=== PATIENT | female | born 1960 | race Caucasian/White ===

== ENCOUNTER → 2020-04-17 | Outpatient (CLI) | payer BC, OTHER ==
--- NOTE | 2020-04-21 18:11 | MAM ---
EXAM DESCRIPTION: 3D Screening BILATERAL : Digital Mammography. CLINICAL HISTORY: 60 years Female SCREENING . No complaints. No personal history of breast cancer. Menarche age 11. Childbirth age 28. Postmenopausal age 54. No HRT. Lifetime risk of developing breast cancer (Tyrer-Cuzick model)(%): 10.3 COMPARISON: Bilateral screening digital 2-D mammographic examination. September 2011. TECHNIQUE: Bilateral CC and MLO projection full-field images, digital tomosynthesis mammographic technique. Bilateral digital 2-D full-field MLO images. CAD available for 2-D images. FINDINGS: The breast parenchymal density pattern is: Scattered areas of fibroglandular density. No skin thickening or nipple retraction. Solitary microcalcifications. Coarse calcifications. Focal asymmetry lower outer quadrant middle third right breast stable, possibly lymph node, 6 cm from the nipple. Question of stability versus growth since the prior study No new focal, stellate mass or density, focal asymmetry , and no suspicious microcalcifications left breast. IMPRESSION: BI-RADS CATEGORY: 0 - INCOMPLETE- Need additional imaging evaluation. RECOMMENDATIONS: FOLLOW-UP: Recall for additional imaging: Targeted right breast ultrasound region of interest. Optional digital diagnostic breast tomosynthesis to follow depending on ultrasound findings.. Written communication concerning the IMPRESSION and Follow-up, will be mailed to the patient and referring health care provider. Electronically signed by: Albert Gonzalez MD 04/21/2020 6:09 PM CDT
== END ==
LOC: MAMMO 13:10
PROVIDERS: ATTEND Nurse Practitioner Family
DX: Z12.31 Encounter for screening mammogram for malignant neoplasm of breast (principal)

== ENCOUNTER → 2020-05-05 | Outpatient (CLI) | payer BC ==
--- NOTE | 2020-05-07 15:59 | US ---
EXAM DESCRIPTION: Breast,Right: Ultrasound CLINICAL HISTORY: 60 yearsFemaleAbnormal mammo focal asymmetry or lymph node right breast change since prior study. COMPARISON: Bilateral screening digital breast tomosynthesis March 2020. Bilateral screening digital breast 2-D imaging September 2011. TECHNIQUE: Transcutaneous scanning of the right breast utilizing pepper-scale and Doppler modes. Scanning performed by the central office technician ; observation by Dr. Gonzalez. FINDINGS: Ultrasound: Scanning of the lateral right breast middle third. The tissue is a combination of fatty and fibroglandular elements. Focal fibroglandular tissues in the region of interest 6 cm from the nipple at 9:00. At 7:00, a anechoic cyst versus hypoechoic lymph node is present measuring 4.7 x 4.2 mm, parallel and circumscribed margins. Nonvascular. No dominant solid mass, no fluid collection, no large calcifications. Overlying skin is unremarkable. IMPRESSION: Benign exam. BIRAD CATEGORY: 2 BENIGN FINDINGS. RECOMMENDATIONS: FOLLOW UP: Return to routine digital bilateral mammographic screening, one year interval from April 2020. Written communication explaining the IMPRESSION and follow-up, will be mailed to the patient and referring health care provider. The FINDINGS and the FOLLOW-UP plan were reviewed in person with the patient after the examination. According to the [employer], yearly mammograms are recommended starting at age 40 and continuing as long as a woman is in good health. Any breast change noted on a breast self-exam should be reported promptly to the patient's healthcare provider. Breast MRI is recommended for women with an approximately 20-25% or greater lifetime risk of breast cancer, including women with a strong family history of breast or ovarian cancer and women who have been treated for Hodgkin's disease. A negative mammographic report should not delay tissue diagnosis in patients with significant clinical history or physical findings. Extremely dense breast tissue limits the sensitivity of digital mammography. Electronically signed by: Albert Gonzalez MD 05/07/2020 3:58 PM [facility]
== END ==
LOC: US 15:44
PROVIDERS: ATTEND Nurse Practitioner Family
DX: R92.8 Other abnormal and inconclusive findings on diagnostic imaging of breast (principal)